=== PATIENT | female | born 1995 ===

== ENCOUNTER 2018-05-13 09:50 | Observation (INO) | payer SELFPAY ==
[2018-05-13] MEDS ORDERED: PREN-96 PO (13:04)
== END 2018-05-13 12:20 | disposition home or self-care (01) | DRG 781 ==
LOC: LDRP 09:50
PROVIDERS: ADMIT Specialist; ATTEND Specialist
DX: O24.419 Gestational diabetes mellitus in pregnancy, unspecified control (principal); Z3A.37 37 weeks gestation of pregnancy
CPT/HCPCS: 59025; 76818; 81002; 82962; G0378

== ENCOUNTER 2018-05-16 15:05 | Observation (INO) | payer MEDICAID ==
[~2018-05-16 15:05] MED LIST: PREN-96 PO
== END 2018-05-16 16:35 | disposition home or self-care (01) | DRG 566 ==
LOC: LDRP 15:05
PROVIDERS: ADMIT Obstetrics & Gynecology; ATTEND Obstetrics & Gynecology
DX: O24.419 Gestational diabetes mellitus in pregnancy, unspecified control (principal); O62.9 Abnormality of forces of labor, unspecified; Z3A.38 38 weeks gestation of pregnancy
CPT/HCPCS: 59025; 76818; 81002; 82948; 82962; G0378

== ENCOUNTER 2018-05-22 15:59 | Observation (INO) | payer MEDICAID | END 2018-05-22 16:55 | disposition home or self-care (01) | DRG 566 | LOC: LDRP 15:59 | PROVIDERS: ADMIT Specialist; ATTEND Specialist | DX: O24.419 Gestational diabetes mellitus in pregnancy, unspecified control (principal); O26.893 Other specified pregnancy related conditions, third trimester; N89.8 Other specified noninflammatory disorders of vagina; Z3A.39 39 weeks gestation of pregnancy | CPT/HCPCS: 59025; 76818; 81002; G0378 ==

== ENCOUNTER 2018-05-23 03:56 | Inpatient (IN) | payer MEDICAID ==
[2018-05-23] VITALS (15 sets, daily range): BP systolic 101–130; BP diastolic 59–83
[~2018-05-23] VITALS: Ht 157.5 cm; Wt 67.6 kg
[2018-05-23] MEDS ORDERED: LACTATED RINGER'S 1,000 ML IV SCH (04:00)
[2018-05-23 04:49] LABS: Urine Bacteria MOD /hpf (None Seen); Urine Blood Negative /uL (Negative); Urine Specific Gravity 1.015 (1.001-1.035); Urine WBC 61 /hpf (0 - 5)
[2018-05-23 04:50] LABS: Basophils # (auto) 0 uL; Basophils % (auto) 0.3 % (0.0-2.0); Eosinophils # (auto) 0.1 uL; Eosinophils % (auto) 1.1 % (0.0-7.0); Hematocrit 42.1 % (36.0-46.0); Hemoglobin 14.5 g/dL (12.2-16.2); Mean Corpuscular Hgb Conc. 34.5 g/dL (32.0-36.0); Mean Corpuscular Volume 89.7 fL (80.0-100.0); Monocytes # (auto) 0.7 uL; Neutrophils # (auto) 4.8 uL; Neutrophils % (auto) 63.6 % (37.0-80.0); Platelet Count (auto) 149 10^3/uL (140-450); Red Cell Distribution Width 14.4 % (11.8-14.3); White Blood Cell 7.5 10^3/uL (4.4-10.8)
[2018-05-23 04:58] LABS: INR 0.93 (0.9-1.15); Partial Thromboplastin Time 30.4 sec (23.78-33.04)
[2018-05-23 05:06] LABS: Albumin 2.9 g/dL (3.4-5.0); BUN/Creatinine Ratio 12.7; Bilirubin, Total 0.3 mg/dL (0.2-1.0); Calcium 8.6 mg/dL (8.5-10.1); Potassium 4.1 mmol/L (3.5-5.1); Total Protein 6.8 g/dL (6.4-8.2)
[2018-05-23] MEDS: LACTATED RINGER'S 1,000 ML IV SCH ×3 (05:45→20:15)
[2018-05-23] MEDS ORDERED: TETRACAINE 1% INJ 2 ML VIAL IJ ONE (06:52)
[2018-05-23] MEDS ORDERED: MORPHINE SULF(PF) 0.5MG/ML 10ML VIAL ONE (07:36)
[2018-05-23] MEDS ORDERED: fentaNYL CITRATE 100 MCG/2 ML VL ONE (07:36)
[2018-05-23] MEDS ORDERED: KETOROLAC TROMETH 30 MG/ML 1ML VIAL IV PRN (08:30)
[2018-05-23] MEDS ORDERED: ceFAZolin 1GM/50ML 50 ML IV SCH (08:30)
[2018-05-23] MEDS ORDERED: ONDANSETRON HCL 4 MG/2 ML VIAL IV PRN ×2 (08:30→08:45)
[2018-05-23] MEDS ORDERED: diphenhdrAMINE HCL 50 MG/1 ML VL IV PRN (08:45)
[2018-05-23] MEDS ORDERED: NALOXONE HCL 0.4 MG/ML VIAL IV PRN (08:45)
[2018-05-23] MEDS ORDERED: OXYTOCIN 10UNIT/ML 1ML VIAL ONE (08:50)
[2018-05-23] MEDS ORDERED: METHYLERGONOVINE MALEATE 0.2 MG/ML AMP IM ONE ×3 (09:45→09:56)
[2018-05-23] MEDS ORDERED: CARBOPROST TROMETHAMINE 250 MCG/1ML VIAL IM ONE ×3 (10:15→10:20)
[2018-05-23] MEDS ORDERED: ONDANSETRON HCL 4 MG/2 ML VIAL IV ONE (10:25)
[2018-05-23] MEDS: LACT. RINGERS/OXYTOCIN 20UNITS 1,000 ML IV SCH ×2 (15:03→17:15)
[2018-05-23] MEDS: ceFAZolin 1GM/50ML 50 ML IV SCH (16:15)
[2018-05-23 20:33] LABS: Basophils # (auto) 0 uL; Basophils % (auto) 0.1 % (0.0-2.0); Eosinophils # (auto) 0 uL; Hematocrit 38.3 % (36.0-46.0); Hemoglobin 13.1 g/dL (12.2-16.2); Lymphocytes # (auto) 1.6 uL; Mean Corpuscular Hemoglobin 30.5 pg (28.0-32.0); Mean Corpuscular Hgb Conc. 34.1 g/dL (32.0-36.0); Mean Corpuscular Volume 89.3 fL (80.0-100.0); Monocytes % (auto) 7.8 % (0.0-12.0); Neutrophils # (auto) 9.9 uL; Neutrophils % (auto) 79.1 % (37.0-80.0); Nucleated Red Blood Cells % 0.1 %; Platelet Count (auto) 133 10^3/uL (140-450); Red Blood Cells 4.29 10^6/uL (4.0-5.20); Red Cell Distribution Width 14.8 % (11.8-14.3); White Blood Cell 12.5 10^3/uL (4.4-10.8)
[2018-05-23] MEDS: MORPHINE SULFATE 4 MG/ML SYR/VIAL IV PRN (21:47)
[2018-05-24] MEDS: ceFAZolin 1GM/50ML 50 ML IV SCH ×2 (00:10→08:37)
[2018-05-24] MEDS: MORPHINE SULFATE 4 MG/ML SYR/VIAL IV PRN (02:46)
[2018-05-24 02:54] VITALS: BP 99/58
[2018-05-24 04:06] LABS: RPR Non Reactive (Non Reactive)
[2018-05-24] MEDS: LACTATED RINGER'S 1,000 ML IV SCH ×3 (04:15→20:15)
[2018-05-24 06:41] LABS: Basophils # (auto) 0 uL; Basophils % (auto) 0.1 % (0.0-2.0); Eosinophils # (auto) 0 uL; Eosinophils % (auto) 0.1 % (0.0-7.0); Hematocrit 36.7 % (36.0-46.0); Hemoglobin 12.7 g/dL (12.2-16.2); Lymphocytes % (auto) 8.3 % (10.0-50.0); Mean Corpuscular Hemoglobin 30.8 pg (28.0-32.0); Mean Corpuscular Hgb Conc. 34.6 g/dL (32.0-36.0); Monocytes # (auto) 0.9 uL; Neutrophils # (auto) 10.6 uL; Neutrophils % (auto) 84.5 % (37.0-80.0); Platelet Count (auto) 127 10^3/uL (140-450); Red Blood Cells 4.12 10^6/uL (4.0-5.20); Red Cell Distribution Width 14.6 % (11.8-14.3); White Blood Cell 12.5 10^3/uL (4.4-10.8)
[2018-05-24 07:05] VITALS: BP 107/80
[2018-05-24] MEDS ORDERED: BISACODYL 10 MG RECT SUPP PR PRN (07:15)
[2018-05-24] MEDS ORDERED: HYDROcodone-ACET 5/325MG TAB PO PRN (07:15)
[2018-05-24] MEDS: HYDROcodone-ACET 5/325MG TAB PO PRN ×2 (08:39→18:53)
[2018-05-24 11:16] VITALS: BP 105/64
[2018-05-24] MEDS: DOCUSATE SOD 100 MG CAP PO SCH ×2 (11:51→22:34)
[2018-05-24] MEDS: DOCUSATE CALCIUM 240 MG CAP PO SCH (11:51)
[2018-05-24] MEDS: IBUPROFEN 800 MG TAB PO PRN ×2 (13:47→23:44)
[2018-05-24 15:10] VITALS: BP 118/78
[2018-05-24 19:15] VITALS: BP_SYST 105; BP_SYST 149; BP_DIAS 56; BP_DIAS 75
[2018-05-24 23:00] VITALS: BP 107/65
[2018-05-25 03:30] VITALS: BP 95/51
[2018-05-25] MEDS: LACTATED RINGER'S 1,000 ML IV SCH (04:15)
[2018-05-25] MEDS: HYDROcodone-ACET 5/325MG TAB PO PRN (05:07)
[2018-05-25 07:00] VITALS: BP 104/67
[2018-05-25] MEDS: DOCUSATE CALCIUM 240 MG CAP PO SCH (10:07)
[2018-05-25] MEDS: DOCUSATE SOD 100 MG CAP PO SCH ×2 (10:08→21:34)
[2018-05-25 11:00] VITALS: BP 121/71
[2018-05-25 15:00] VITALS: BP 123/77
[2018-05-25] MEDS: IBUPROFEN 800 MG TAB PO PRN (16:24)
[2018-05-25 19:00] VITALS: BP 108/62
[2018-05-25 23:00] VITALS: BP 116/67
[2018-05-26 03:00] VITALS: BP 117/63
[2018-05-26] MEDS: IBUPROFEN 800 MG TAB PO PRN (03:04)
[2018-05-26 07:00] VITALS: BP 120/78
[2018-05-26 11:00] VITALS: BP 117/75
[2018-05-26] MEDS: DOCUSATE SOD 100 MG CAP PO SCH (11:18)
[2018-05-26] MEDS: DOCUSATE CALCIUM 240 MG CAP PO SCH (11:19)
== END 2018-05-26 11:30 | disposition home or self-care (01) | DRG 540 ==
LOC: LDRP 03:56 → OBSVTOIN 07:58 → LDRP 09:12
PROVIDERS: ADMIT Obstetrics & Gynecology; ATTEND Obstetrics & Gynecology
PROC: 10D00Z1 Extraction of Products of Conception, Low, Open Approach (ICD-10-PCS; principal; 2018-05-23 07:32)
DX: O34.211 Maternal care for low transverse scar from previous cesarean delivery (principal); O41.03X0 Oligohydramnios, third trimester, not applicable or unspecified; Z37.0 Single live birth; K21.9 Gastro-esophageal reflux disease without esophagitis; O99.62 Diseases of the digestive system complicating childbirth
CPT/HCPCS: 36415; 59025; 80053; 81001; 85025; 85610; 85730; 86592; 86850; 86900; 86901; 96365; 96366; 96374; 96375; G0378; J0690; J1885; J2405; J2590